=== PATIENT | male | born 1970 | race Caucasian/White ===

== ENCOUNTER 2022-07-28 12:56 | Outpatient (CLI) | payer BC, SELFPAY ==
[2022-07-28 22:10] LABS: Albumin* 5.4 g/dL (3.3-5.0); Chloride* 104 mmol/L (96-114); Potassium* 4.5 mmol/L (3.6-5.1); Sodium* 142 mmol/L (135-149)
[2022-07-28 22:12] LABS: Bilirubin Total* 0.9 mg/dL (0.1-1.5); Carbon Dioxide* 27 mmol/L (20-32); Cholesterol* 201 mg/dL (90-199); Creatinine* 0.8 mg/dL (0.5-1.5); Estimated Glomerular Filt Rate 106 ml/min; Total Protein* 8.8 g/dL (6.0-8.3)
[2022-07-28 22:13] LABS: Alanine Aminotransferase* 57 U/L (4-50); Alkaline Phosphatase* 125 U/L (40-150); Aspartate Amino Transferase* 46 U/L (12-35); Blood Urea Nitrogen* 20 mg/dL (7-30); Calcium* 10.4 mg/dL (8.4-10.6); Glucose* 101 mg/dL (60-115); Triglycerides* 69 mg/dL (40-149)
[2022-07-28 22:14] LABS: HDL Cholesterol* 74 mg/dL (>=40); LDL Cholesterol Calculated 113 mg/dL (<100)
[2022-07-28 22:42] LABS: PSA Screen* 1.75 ng/mL (0.10-4.00)
== END 2022-07-28 12:57 | disposition home or self-care (01) ==
PROVIDERS: PCP Family Medicine; Visit Provider Family Medicine
DX: Z00.00 Encounter for general adult medical examination without abnormal findings (principal); E78.5 Hyperlipidemia, unspecified; I10 Essential (primary) hypertension; Z12.5 Encounter for screening for malignant neoplasm of prostate
CPT/HCPCS: 80053; 80061; 84153

== ENCOUNTER 2022-08-23 13:15 | Outpatient (RCR) | payer BC, SELFPAY | END 2022-10-12 15:53 | disposition home or self-care (01) | PROVIDERS: PCP Family Medicine; Visit Provider Family Medicine | DX: M76.61 Achilles tendinitis, right leg (principal); R26.9 Unspecified abnormalities of gait and mobility; Z51.89 Encounter for other specified aftercare | CPT/HCPCS: 97110; 97140; 97161 ==

== ENCOUNTER 2023-05-10 14:29 | Outpatient (CLI) | payer BC, SELFPAY | END 2023-05-10 14:30 | disposition home or self-care (01) | PROVIDERS: PCP Family Medicine; Visit Provider Emergency Medicine | DX: Z00.00 Encounter for general adult medical examination without abnormal findings (principal); E78.5 Hyperlipidemia, unspecified; R53.83 Other fatigue; I10 Essential (primary) hypertension; R74.01 Elevation of levels of liver transaminase levels; Z12.5 Encounter for screening for malignant neoplasm of prostate | CPT/HCPCS: 80048; 80061; 80076; 84153 ==

== ENCOUNTER 2024-04-02 15:36 | Outpatient (CLI) | payer BC, SELFPAY | END 2024-04-02 15:37 | disposition home or self-care (01) | PROVIDERS: PCP Family Medicine; Visit Provider Emergency Medicine | DX: E78.2 Mixed hyperlipidemia (principal); R74.01 Elevation of levels of liver transaminase levels; I10 Essential (primary) hypertension; Z12.5 Encounter for screening for malignant neoplasm of prostate | CPT/HCPCS: 80048; 80061; 80076; G0103 ==

== ENCOUNTER 2024-05-15 15:22 | Outpatient (CLI) | payer BC, SELFPAY | END 2024-05-15 15:23 | disposition home or self-care (01) | LOC: LKVREF 15:24 | PROVIDERS: PCP Family Medicine; Visit Provider Emergency Medicine | DX: Z71.3 Dietary counseling and surveillance (principal); R77.8 Other specified abnormalities of plasma proteins; R73.01 Impaired fasting glucose; R74.01 Elevation of levels of liver transaminase levels; E78.5 Hyperlipidemia, unspecified; R53.83 Other fatigue; I10 Essential (primary) hypertension | CPT/HCPCS: 84165; 84443 ==

== ENCOUNTER 2024-05-29 19:29 | Outpatient (CLI) | payer BC, SELFPAY | END 2024-05-29 19:30 | disposition home or self-care (01) | LOC: SLEEP 19:31 | PROVIDERS: PCP Family Medicine; Visit Provider Emergency Medicine | DX: Z53.8 Procedure and treatment not carried out for other reasons (principal) | CPT/HCPCS: 95806 ==

== ENCOUNTER 2024-06-12 14:59 | Outpatient (CLI) | payer BC, SELFPAY ==
--- NOTE | 2024-06-26 08:31 | W.PM.SLEEP ---
Sleep Study Details Details Interpreting Provider: Stuart Date of Sleep Study: 06/12/24 Sleep Study Details: STUDY TYPE:? Home unattended ? BMI:? Not recorded ORDERING PROVIDER: Aleah INDICATION:? Concern about sleep apnea ? SLEEP SUMMARY:? 494 minutes monitored RESPIRATORY SUMMARY:? AHI 11.6 Low oxygen 83 7.4% of study oxygen below 90% Snoring 96.8% PERIODIC LIMB MOVEMENTS OF SLEEP:? Not recorded CARDIAC:? Range 67-108, mean 79 IMPRESSION:? Mild obstructive sleep apnea with significant oxygen desaturations. RECOMMENDATION: Treatment options include CPAP, dental appliance, weight loss if indicated and/or airway expansion surgery.
--- NOTE | 2024-07-02 12:54 | W.PM.SLEEP ---
Sleep Study Details Details Interpreting Provider: Stuart Date of Sleep Study: 06/12/24 Sleep Study Details: STUDY TYPE:? Home unattended ? BMI:? 31.9 ORDERING PROVIDER:? Aleah INDICATION:? Concern about sleep apnea ? SLEEP SUMMARY:? 493.5 minutes monitored RESPIRATORY SUMMARY:? AHI 10.7 Low oxygen 83 7.4% of study oxygen less than 90% Snoring 96.8% PERIODIC LIMB MOVEMENTS OF SLEEP:? Not record CARDIAC:? Range 67-1 awake, mean 79 IMPRESSION:? Mild obstructive sleep apnea with significant desaturations RECOMMENDATION: Treatment options include CPAP, dental appliance and/or airway expansion surgery.
== END 2024-06-12 15:00 | disposition home or self-care (01) ==
LOC: SLEEP 15:00
PROVIDERS: PCP Family Medicine; Visit Provider Emergency Medicine
DX: G47.33 Obstructive sleep apnea (adult) (pediatric) (principal)
CPT/HCPCS: 95806

== ENCOUNTER 2025-03-12 14:50 | Outpatient (CLI) | payer BC, SELFPAY | END 2025-03-12 14:51 | disposition home or self-care (01) | LOC: NFLDREF 03-17 14:25 | PROVIDERS: PCP Family Medicine; Referring Provider Family Medicine | DX: N41.9 Inflammatory disease of prostate, unspecified (principal); R35.0 Frequency of micturition | CPT/HCPCS: 87086 ==

== ENCOUNTER 2025-03-20 10:36 | Outpatient (CLI) | payer BC, SELFPAY | END 2025-03-20 10:37 | disposition home or self-care (01) | LOC: FRMREF 10:38 | PROVIDERS: PCP Family Medicine; Visit Provider Family Medicine | DX: Z00.00 Encounter for general adult medical examination without abnormal findings (principal); E78.5 Hyperlipidemia, unspecified; Z12.5 Encounter for screening for malignant neoplasm of prostate | CPT/HCPCS: 80061; G0103 ==

== ENCOUNTER 2025-03-27 12:58 | Outpatient (CLI) | payer BC, SELFPAY ==
--- NOTE | 2025-03-27 13:00 | CRLHL7_ITS ---
For Patients: As a result of the Century Cures Act, medical imaging exams and procedure reports are released immediately into your electronic medical record. You may view this report before your referring provider. If you have questions, please contact your health care provider. Indication: Pelvic and perineal pain Technique: Routine noncontrast CT abdomen and pelvis Please note that all CT scans at this facility use dose modulation, iterative reconstruction, and/or weight-based dosing when appropriate to reduce radiation dose to as low as reasonably achievable. Comparison: None Findings: Mild dependent areas of atelectasis are present in both lung bases. No pleural effusion or pulmonary edema. Mild bilateral subareolar gynecomastia. Noncontrast enhanced liver is normal. Normal spleen. Adrenal glands are normal. Gallbladder incompletely distended. No biliary obstruction. No hiatal hernia. Nonobstructing stone is present within the lower pole of the right kidney that measures 4.8 millimeters. 2 millimeter stone in the upper pole of the right kidney. Normal right ureter. Mild prominence of the left ureter. There is a stone in the distal left ureter adjacent to the ureterovesical junction which measures 4 millimeters. No bladder wall thickening. Prostate calcifications are present. No bowel obstruction or free air. No free fluid. No abscess. No adenopathy. Spurring at both hip joints. No fracture. Umbilical hernia containing fat is present measuring 2 cm. Impression: 4 millimeter stone in the distal left ureter at the left UVJ resulting in mild left hydroureter. Nonobstructing right renal stones. Please note that all CT scans at this facility use dose modulation, iterative reconstruction, and/or weight-based dosing when appropriate to reduce radiation dose to as low as reasonably achievable. Dictated by Malcolm Trujillo MD @ 03/27/2025 2:33:17 PM (Electronically Signed)
== END 2025-03-27 12:59 | disposition home or self-care (01) ==
LOC: CT 12:59
PROVIDERS: PCP Family Medicine; Visit Provider Nurse Practitioner Family
DX: R10.2 Pelvic and perineal pain (principal); N20.1 Calculus of ureter
CPT/HCPCS: 74176

== ENCOUNTER 2025-07-07 07:20 | Day surgery (SDC) | payer BC, SELFPAY ==
[2025-07-07] VITALS (11 sets, daily range): BP systolic 102–116; BP diastolic 60–72; PULSE 86–106; RESP 12–20; TEMP 36.9–37.2; O2SAT 96–98; BMI 25.1
[2025-07-07] MEDS: SODIUM CHLORIDE 0.9 % (FLUSH) 10 ML SYRINGE IVF (08:01)
[2025-07-07] MEDS: LACTATED RINGERS 1000 ML 1,000 ML 100 ML IV ×2 (08:02→10:01)
--- NOTE | 2025-07-07 08:44 | W.PM.H&PU ---
History & Physical Update History & Physical Update H&P Reviewed and patient assessed: No changes noted
--- NOTE | 2025-07-07 08:50 | P.GSOP_ITS ---
Operative Note Date of procedure: 07/07/25 Pre-op diagnosis: 1. Enlarging umbilical hernia and supraumbilical fascial defect on CT scan. Post-op diagnosis: 1. Incarcerated fat containing umbilical hernia and supraumbilical hernia. Type of Procedure: 1. Open ventral hernia repair with mesh. Indications: 55-year-old male was seen in clinic for evaluation of umbilical hernia. Patient noticed an umbilical bulge 3 years ago on his annual physical exam. With time the bulge has been increasing in size and became more protuberant. He denied pain at the bulge. Patient had abdominal CT in February of 2025 that showed fat containing umbilical hernia that was measuring approximately 2 cm. There was a small supraumbilical defect noted as well. On clinical exam patient had a dime- sized umbilical bulge in the center of umbilicus. Patient had tenderness when attempting to reduce the hernia. There is possibly a pea-sized bulge palpated 2 cm superior to the umbilicus corresponding to patient's supraumbilical defect. Given patient's clinical history and his physical exam, an open umbilical and supraumbilical hernia repair was recommended. The procedure was discussed in detail. The risks associated procedure including infection, bleeding, the need for additional procedures, and hernia recurrence were all discussed with the patient, and he agreed to proceed. Procedure Description: After discussing the risks and benefits of the procedure, the patient signed informed consent.? The operative site was marked and the patient was brought to the operating room and placed on the operating table in supine position.? Care was taken to pad the patient's pressure points.?? The patient was then intubated by anesthesia.?? The operative site was then prepped and draped in the usual sterile fashion.? A time-out was then performed. A vertical skin incision was made just superior to the umbilicus. Subcutaneous fat was divided with cautery. The supraumbilical fascial defect was identified and preperitoneal fat was incarcerated and protruding through this fascial defect. I explored patient's fascia superiorly and no additional defects were identified however the midline fascia was weakened. We then dissected the umbilicus off the umbilical hernia sac. This was done with cautery. Umbilicus was then retracted, and umbilical hernia defect was identified. Incarcerated fat was protruding through this fascial defect as well. I attempted to reduce this fascial defect but was not successful. Protruding preperitoneal fat was then excised with cautery. This was not sent to pathology. Hemostasis was achieved with cautery. The umbilical fascial defect was 1 cm. The suprau mbilical fascial defect was also 1 cm but the surrounding fascia was weakened. The 2 defects were 2 cm apart. I elected to incise the fascial bridge connecting the 2 defects and create 1 common defect. This was done with cautery. I then developed preperitoneal space for mesh placement. This was done with cautery. Tiny peritoneal opening was created during this dissection and that was closed with 3-0 Vicryl suture. Hemostasis was achieved with cautery. When adequate space was developed for mesh placement, Ventralex ST 8 cm mesh was then placed into preperitoneal space. This was secured in place with interrupted 0-0 Vicryl sutures. This closure was examined and no additional space was noted to be reinforced. The fascial tails attached to the mesh were excised and removed. The anterior fascia was then closed over the mesh with 0-0 Vicryl suture. Local anesthetic was injected in subcutaneous space and surrounding fascia. Subcutaneous fat was then reapproximated with interrupted 2-0 Vicryl sutures. The dermis was closed with interrupted 3-0 Vicryl sutures. The skin was closed with a running 4-0 Monocryl stitch. Steri- Strips and sterile pressure dressings were placed over the incision. This was secured in place with tape. All counts were correct at the end of the case. ? The patient was then woken and transported to the recovery area in stable condition. ? The patient tolerated the procedure well. Findings: Weekend midline fascia, 2 defects were identified and preperitoneal fat was incarcerated through both defects. The fascial bridge between the defects was divided and 1 common defect was then created and repaired with mesh. Anesthesia: GETA Surgeon: Petar Clark MD Estimated blood loss (mL): 10 Condition: stable Disposition: PACU
--- NOTE | 2025-07-07 11:04 | P.ANES_ITS ---
Anesthesia Charges Start Date/Time Anesthesia Start Date: 07/07/25 Anesthesia Start Time: 08:55 Stop Date/Time Anesthesia Stop Date: 07/07/25 Anesthesia Stop Time: 11:03 Coding CPT Codes CPT Codes: ANESTH REPAIR OF HERNIA - 39951 ([id number]) P2 - PATIENT W/MILD SYST DISEASE, QZ - PLUMBING ASSEMBLER SVC W/O RECRUITING CONSULTANT BY
--- NOTE | 2025-07-07 11:04 | W.ANESCHARGE ---
Anesthesia Charges Start Date/Time Anesthesia Start Date: 07/07/25 Anesthesia Start Time: 08:55 Stop Date/Time Anesthesia Stop Date: 07/07/25 Anesthesia Stop Time: 11:03 Coding CPT Codes CPT Codes: ANESTH REPAIR OF HERNIA - 46057 ([id number]) P2 - PATIENT W/MILD SYST DISEASE, QZ - HYBRID TESTER SVC W/O EQUITY STRUCTURER BY
[2025-07-07] MEDS: HYDROCODONE-ACETAMIN 5-325 MG 1 TAB PO (11:47)
== END 2025-07-07 13:00 | disposition home or self-care (01) ==
PROVIDERS: PCP Family Medicine; Visit Provider Surgery
PROC: (CPT 49592; principal; 2025-07-07 08:45)
DX: K42.0 Umbilical hernia with obstruction, without gangrene (principal)
CPT/HCPCS: 49592; 00752; A4467; A9270; C1781; J0330; J0690; J1100; J1171; J2250; J2405; J2704; J2710; J3010; J3490; J7120